=== PATIENT | female | born 1955 | race Caucasian/White ===

== ENCOUNTER 2020-03-19 16:37 | Emergency (ER) | payer BC ==
[2020-03-19] MEDS ORDERED: Lidocaine 1% w/Epinephrine 1:100K 20 ML VIAL ONE (17:35)
== END 2020-03-19 18:15 | disposition home or self-care (01) ==
LOC: MADERS 16:37
DX: K61.1 Rectal abscess (principal)
CPT/HCPCS: 46040

== ENCOUNTER 2020-03-21 10:21 | Emergency (ER) | payer BC | END 2020-03-21 10:57 | disposition home or self-care (01) | LOC: MADERS 10:21 | DX: Z48.817 Encounter for surgical aftercare following surgery on the skin and subcutaneous tissue (principal); Z79.899 Other long term (current) drug therapy | CPT/HCPCS: 99282 ==